=== PATIENT | female | born 1970 | race Caucasian/White ===

== ENCOUNTER → 2018-10-04 10:19 | Outpatient (CLI) | payer BC, SELFPAY ==
--- NOTE | 2018-10-04 10:26 | XR_ITS ---
XR elbow RT min 3V HISTORY: ITS.REASON: RT ELBOW PAIN ORDERING PHYSICIAN: Gabby Llamas PATIENT AGE: 48 years FINDINGS: No fracture or dislocation. There are minimal hypertrophic changes at the olecranon in the lateral epicondyles. No displaced fat pad. Joint spaces well-preserved. IMPRESSION: No acute finding. Minimal degenerative change
== END ==
PROVIDERS: PCP Nurse Practitioner; Visit Provider Nurse Practitioner
DX: M25.521 Pain in right elbow (principal)
CPT/HCPCS: 73080

== ENCOUNTER → 2019-06-25 08:39 | Outpatient (CLI) | payer BC, SELFPAY ==
--- NOTE | 2019-06-25 08:41 | MM_ITS ---
MM Dig screening mamm BI w/CAD ORDERING PHYSICIAN : Jv Shultz MD PATIENT AGE: 49 years GENDER: Female COMPARISON: October 20162014 & November 2012 bilateral mammogram HISTORY:. Takes control pills. Routine Screening Mammogram Noncontributory family history. TECHNIQUE: Standard CC and MLO images were obtained. R2 CAD reviewed. FINDINGS: . Heterogeneous Moderate breast density towards upper-outer quadrant. Fibroglandular most evident towards upper-outer quadrant. .However I see no prominent or discrete interval change since prior studies. No new suspicious or dominant mass. No suspicious calcifications RIGHT BREAST:Stable appearance no new areas of concern LEFT BREAST:No new areas of concern.. Follow-up in one year Small focal asymmetric density towards the medial breast seen on cc view stable since 2014 study. IMPRESSION: Stable mammogram. No new areas significant concern. Bilateral follow-up in one year recommended Moderately dense breasts. BI-RADS Category: 2 Benign Finding(s) RECOMMENDED FOLLOW-UP: 1YR 1 YEAR FOLLOW-UP (A letter has been sent to the patient regarding results of the study.)
== END ==
PROVIDERS: PCP Family Medicine; Visit Provider Nurse Practitioner Obstetrics & Gynecology
DX: Z12.31 Encounter for screening mammogram for malignant neoplasm of breast (principal)
CPT/HCPCS: 77067

== ENCOUNTER 2020-06-10 13:22 | Emergency (ER) | payer OTHER, SELFPAY ==
--- NOTE | 2020-06-10 14:04 | PC.NURSE ---
Called report to ED for pt to be transferred over
[2020-06-10 14:05] VITALS: BP 221/105; PULSE 78; RESP 16; TEMP 36.6; O2SAT 98; BMI 27.4
[2020-06-10 14:13] VITALS: BP 210/103; PULSE 79; RESP 18; TEMP 37.1; O2SAT 99; BMI 30.2
--- NOTE | 2020-06-10 14:13 | ECG_ITS ---
APPROVED REPORT Exam: Resting ECG HR:70 bpm ECG Measurements Heart Rate 70 AXES AR 176 P 59 QRSd 74 QRS -16 QT 438 T 35 QTc 473 <Conclusion> Normal sinus rhythm Left atrial abnormality Poor r wave progression Abnormal ECG Electronically signed by : Percy Alston, 06/12/2020 08:08:49
[2020-06-10 14:18] VITALS: BP 180/110; PULSE 75; RESP 18; O2SAT 98
--- NOTE | 2020-06-10 14:19 | XR_ITS ---
PROCEDURE: XR CHEST PORTABLE CLINICAL HISTORY: HIGH BLOOD PRESSURE Hypertension COMPARISON: No exams were available for comparison FINDINGS: The cardiomediastinal silhouette and pulmonary vascularity are within normal limits. The lungs are clear without infiltrates, suspicious nodules, or pleural effusions. No acute bony abnormalities. IMPRESSION: No acute findings. Dictated by: Kwaku Trujillo MD 06/10/2020 16:01 Electronically signed by Kwaku Trujillo MD in [place] 06/10/2020 16:01
--- NOTE | 2020-06-10 14:21 | CT_ITS ---
Procedure: CT ANGIO NECK CLINICAL HISTORY: left arm weakness, resolved Left-sided weakness, left arm weakness and numbness COMPARISON: No exams were available for comparison TECHNIQUE: IV Contrast: 100ml Optiray 350 Axial images obtained with sagittal and coronal reformats. All CT scans at the facility use one or more dose reduction, viz: automated exposure control, ma/kV adjustment per patient size (including targeted exams where dose is matched to indication, i.e. head), or iterative reconstruction technique. FINDINGS: CT angio neck: There is occlusion the left common carotid artery proximally approximately 8 mm distal to the origin. The left common carotid artery reconstitutes distally just proximal to the carotid bulb with minimal intraluminal contrast within the mid left common carotid centrally. There is moderate to high-grade stenosis of the ostium of the right common carotid artery of approximately 65 percent. There is smooth segment stenosis involving the mid aspect of the right common carotid artery of approximately 50 percent. The distal right common carotid is unremarkable. The carotid bulb on the right and the cervical portion of the right ICA has an unremarkable appearance. There is 50 percent stenosis involving the ostium of the left vertebral artery. The right vertebral has an unremarkable appearance. The left ICA is somewhat small but no significant stenosis is evident. CT angio head: There is mild atheromatous changes of the cavernous intracranial portion of the ICAs without significant stenosis.. No aneurysm, AVM, or major intracranial occlusive process is evident. 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 No enhancing lesions midline shift or mass effect is evident. IMPRESSION: 1. Occluded left common carotid with reconstitution distally just proximal to the carotid bulb and bifurcation. The left ICA is small but without significant stenosis. 2. 65 percent stenosis of the ostium of the right common carotid with 50 percent smooth segment stenosis of the mid aspect of the right common carotid. 3. 50 percent stenosis involving the ostium of the left vertebral 4. No aneurysm AVM or major intracranial occlusive process Dictated by: Kwaku Trujillo MD 06/10/2020 15:52 Electronically signed by Kwaku Trujillo MD in [place] 06/10/2020 15:52
--- NOTE | 2020-06-10 14:22 | HMH.EDGENADL ---
ED Disposition Clinical Impression: Transient ischemic attack (TIA) Carotid stenosis, symptomatic w/o infarct Qualifiers: Laterality: bilateral Qualified Code(s): I65.23 - Occlusion and stenosis of bilateral carotid arteries Hypertension Qualifiers: Hypertension type: essential hypertension Qualified Code(s): I10 - Essential (primary) hypertension Disposition: Xfer Critical Access Hosp Condition on Discharge: Fair Referrals: Gabby Llamas APRN [Primary Care Provider] - Forms: Work/School Release, Transfer Record - ED Time of Disposition: 17:14 - Critical Care Critical Care Time: Yes Attestation: On 06/10/20, the high probability of a clinically significant, sudden or life threatening deterioration of the following system(s) required my full and direct attention, intervention and personal management. The time I documented below is in addition to time spent performing reported procedures but includes the following listed in this critical care notation. Total Critical Care Time: 35 Vital system(s) involved:: Central Nervous System My critical care processes included: Assessment & monitoring of V/S, Initial and Re-exams, Data Review/Interpretation, Coordinating Care, Documentation Medical Decision Making - Medical Records Medical records reviewed: Yes: I reviewed the patient's medical records. - Chris Inquiry Pt receiving controlled substance: No Vital Signs: 06/10/20 14:05 06/10/20 14:13 06/10/20 14:18 Temperature 98 F 98.8 F Temperature Source Oral Oral Pulse Rate [Right] 78 79 75 Respiratory Rate 16 18 18 Blood Pressure [Right Arm] 221/105 H 210/103 H 180/110 H Blood Pressure Mean [Right Arm] 143 138 133 Blood Pressure Source [Right Arm] Automatic Cuff Automatic Cuff Manual Cuff/ Auscultation Blood Pressure Position [Right Arm] Sitting 02 Sat by Pulse Oximetry 98 99 98 Oxygen Delivery Method Room Air Room Air Room Air 06/10/20 15:30 Temperature Temperature Source Pulse Rate [Right] 77 Respiratory Rate 20 Blood Pressure [Right Arm] 172/84 H Blood Pressure Mean [Right Arm] 113 Blood Pressure Source [Right Arm] Automatic Cuff Blood Pressure Position [Right Arm] Sitting 02 Sat by Pulse Oximetry 98 Oxygen Delivery Method Room Air - Lab Data Lab Results 06/10/20 14:11: WBC 7.8, RBC 4.64, Hgb 15.8, Hct 44.3, MCV 95.5, MCH 34.1 H, MCHC 35.7 H, RDW 12.7, Plt Count 260, MPV 7.6, Neut % (Auto) 57.4, Lymph % (Auto) 32.0, [place] % (Auto) 5.1, Eos % (Auto) 3.7, Baso % (Auto) 1.8, Neut # (Auto) 4.5, Lymph # (Auto) 2.5, [place] # (Auto) 0.4, Eos # (Auto) 0.3, Baso # (Auto) 0.1 06/10/20 14:11: Sodium 132 L, Potassium 3.9, Chloride 90 L, Carbon Dioxide 30, Anion Gap 15.9 H, BUN 11, Creatinine 0.50 L, Estimated Creat Clear 141, Estimated GFR 130, Est GFR ( Amer) 157, Glucose 100, Calcium 9.4, Total Bilirubin 0.8, AST 73 H, ALT 74, Alkaline Phosphatase 51, Troponin I < 0.01, Total Protein 7.6, Albumin 4.7, Globulin 2.9, Albumin/Globulin Ratio 1.6 Result diagrams: 06/10/20 14:11 06/10/20 14:11 Orders (Tests/Meds): ED MEDICATIONS Discontinued Medications Generic Name Dose Route Start Last Admin Trade Name Freq PRN Reason Stop Dose Admin Aspirin 324 mg 06/10/20 14:19 06/10/20 14:21 Aspirin 81mg Chewable Tablet PO 06/10/20 14:20 324 mg ONCE ONE Administration Ioversol 100 ml 06/10/20 15:17 06/10/20 15:18 Rad-Optiray 350 100ml Vial IV 06/10/20 15:18 100 ml ONCE ONE Administration Protocol Sodium Chloride 50 ml 06/10/20 15:17 06/10/20 15:18 Rad-Ns 50ml Vial IV 06/10/20 15:18 50 ml ONCE ONE Administration Sodium Chloride 10 ml 06/10/20 15:17 06/10/20 15:18 Rad-Saline Flush 10ml Syringe IV 06/10/20 15:18 10 ml ONCE ONE Administration ORDERS Category Date Time Status Troponin I Q3H Lab 06/10/20 17:30 Ordered Troponin I Q3H Lab 06/10/20 20:30 Ordered UA [Urinalysis and Microscopic] Stat Lab 06/10/20 14:21 Ordered - Radiolog
[2020-06-10 14:31] LABS: Basophils # 0.1 K/mm3 (0-0.2); Basophils % 1.8 % (0.1-2.0); Eosinophils # 0.3 K/mm3 (0.0-0.4); Eosinophils % 3.7 % (0.1-12.0); Hematocrit 44.3 % (37.0-47.0); Hemoglobin 15.8 g/dL (12.2-16.2); Lymphocytes # 2.5 K/mm3 (0.7-4.5); Mean Corpuscular HGB Conc 35.7 g/dL (31.8-35.4); Mean Corpuscular Hemoglobin 34.1 pg (27.0-31.2); Mean Corpuscular Volume 95.5 fl (81-99); Mean Platelet Volume 7.6 fl (7.4-10.4); Monocytes # 0.4 K/mm3 (0.1-1.0); Monocytes % 5.1 % (1.7-9.3); Neutrophils # 4.5 K/mm3 (1.8-7.8); Neutrophils % 57.4 % (37.0-80.0); Platelet Count 260 K/mm3 (142-424); Red Blood Count 4.64 M/mm3 (4.20-5.40); Red Cell Distribution Width 12.7 % (11.5-17.5); White Blood Count 7.8 K/mm3 (4.8-10.8)
[2020-06-10 14:32] LABS: Chloride 90 mmol/L (98-107); Potassium 3.9 mmoL/L (3.5-5.1); Sodium 132 mmol/L (136-145)
[2020-06-10 14:34] LABS: Alanine Aminotransferase 74 U/L (12-78); Aspartate Amino Transferase 73 U/L (14-36); Blood Urea Nitrogen 11 mg/dl (7-17); Creatinine Clearance Estimated 141 mL/min (50-200); Estimated Glomerular Filt Rate 130 ml/min (>60); GFR (African American) 157 ML/MIN (>60)
[2020-06-10 14:35] LABS: Albumin Level 4.7 g/dl (3.5-5.0); Albumin/Globulin Ratio 1.6 (1.1-1.8); Alkaline Phosphatase 51 U/L (38-126); Anion Gap 15.9 mEq/L (5-15); Bilirubin,Total 0.8 mg/dl (0.2-1.3); Calcium 9.4 mg/dl (8.4-10.2); Carbon Dioxide 30 mmol/L (22.0-30.0); Globulin 2.9 g/dL (1.3-3.2); Glucose 100 mg/dl (74-100); Total Protein,Serum 7.6 g/dl (6.3-8.2)
[2020-06-10 14:47] LABS: Troponin I < 0.01 ng/ml (0.00-0.034)
--- NOTE | 2020-06-10 15:23 | PC.NURSE ---
BACK FROM CT
[2020-06-10 15:30] VITALS: BP 172/84; PULSE 77; RESP 20; O2SAT 98
--- NOTE | 2020-06-10 16:39 | PC.NURSE ---
speaking to Dr Hudson at
--- NOTE | 2020-06-10 16:48 | PC.NURSE ---
Pt accepted per Dr Buenrostro at , stated they would call back with a bed
--- NOTE | 2020-06-10 17:07 | PC.NURSE ---
[facility] CALLED WITH ROOM : PT GOING TO [facility]TH FLOOR ROOM 114
[2020-06-10 17:40] VITALS: BP 180/78; PULSE 80; RESP 18; TEMP 36.8; O2SAT 100
== END 2020-06-10 17:41 | disposition critical access hospital (66) ==
LOC: UTC 13:31 → ER 14:08
PROVIDERS: Emergency Provider Emergency Medicine; PCP Nurse Practitioner
DX: I65.23 Occlusion and stenosis of bilateral carotid arteries (principal); I10 Essential (primary) hypertension; Z87.891 Personal history of nicotine dependence; Z79.899 Other long term (current) drug therapy
CPT/HCPCS: 70496; 70498; 71045; 80053; 84484; 85025; 93005; 99284; Q9967

== ENCOUNTER → 2020-07-21 10:00 | Outpatient (CLI) | payer OTHER, SELFPAY ==
--- NOTE | 2020-07-21 10:01 | MM_ITS ---
PROCEDURE: MM DIG SCREENING MAMM BI W/CAD Digital Breast Tomosynthesis Included CLINICAL INDICATION: screening xmg There is no personal or family history of breast cancer. The patient is currently on control pills. COMPARISON: MG DMSB DIG MAMM-SCREEN TATE from 11/02/2015 MG DMSB DIG MAMM-SCREEN TATE from 11/06/2016 MG DIG MAMM-SCREEN TATE from 06/25/2019 TECHNIQUE: Standard CC and MLO images and 3D Tomosynthesis was obtained. R2 CAD reviewed. FINDINGS: Moderate scattered fibroglandular densities are seen throughout both breasts. There are couple of benign-appearing microcalcifications right breast. There are 2 small stable benign-appearing nodular densities upper outer quadrant left breast. There is no new or suspicious lesion in either breast and no suspicious microcalcifications. IMPRESSION: Moderate breast density with no suspicious lesions seen BI-RAD Category: 2 Benign Finding(s) FOLLOW-UP: 1YR 1 Year Follow-up (A letter has been sent to the patient regarding results of the study.) Dictated by: Dr. Luca Ceja MD 07/22/2020 13:08 Dr. Luca Ceja MD in [place] 07/22/2020 13:08
== END ==
PROVIDERS: PCP Nurse Practitioner; Visit Provider Nurse Practitioner Obstetrics & Gynecology
DX: Z12.31 Encounter for screening mammogram for malignant neoplasm of breast (principal)
CPT/HCPCS: 77063; 77067

== ENCOUNTER 2020-12-13 10:36 | Emergency (ER) | payer OTHER, SELFPAY ==
[2020-12-13 10:40] VITALS: BP 189/94; PULSE 83; RESP 14; TEMP 36.6; O2SAT 99; BMI 29.2
--- NOTE | 2020-12-13 10:59 | HMH.EDUTC ---
[facility] [place] Disposition Clinical Impression: Left humeral fracture Qualifiers: Encounter type: initial encounter Humerus Location: surgical neck Fracture type: closed Fracture morphology: unspecified fracture morphology Fracture alignment: nondisplaced Qualified Code(s): S42.215A - Unspecified nondisplaced fracture of surgical neck of left humerus, initial encounter for closed fracture Left elbow contusion Qualifiers: Encounter type: initial encounter Qualified Code(s): S50.02XA - Contusion of left elbow, initial encounter Left shoulder pain Qualifiers: Chronicity: acute Qualified Code(s): M25.512 - Pain in left shoulder Disposition: Home, Self-Care Condition on Discharge: Good Instructions: DI for Humeral Fracture, Humeral Shaft Fracture Additional Instructions: Rest the extremity, apply ice for 15 minutes as tolerated three or four times per day, Wear the arm sling, Elevate the extremity as tolerated while you are resting. Take ibuprofen for pain. I sent in a prescription to your pharmacy. Follow up with Dr. Sullivan (orthopedics). I call their office and you have a follow up appointment there for Dec 20, at 12:30 pm. Follow up with your regular doctor. GO TO THE ER FOR ANY WORSENING SYMPTOMS Prescriptions: Ibuprofen [Ibuprofen 800mg Tablet] 800 mg PO Q8HP PRN #30 tab PRN Reason: Moderate Pain Transmission Status: Received by [facility] Referrals: Gabby Llamas APRN [Primary Care Provider] - Jacquie Sullivan MD [Physician] - (Follow up appointment on Dec 20 at 12:30 pm) Forms: Work/School Release Time of Disposition: 12:52 Medical Decision Making - Medical Records Medical records reviewed: No: I reviewed the patient's medical records. - Chris Inquiry Pt receiving controlled substance: No Vital Signs: 12/13/20 10:40 12/13/20 12:50 Temperature 97.9 F 97.9 F Temperature Source Oral Pulse Rate 83 Pulse Rate [Right Brachial] 83 Respiratory Rate 14 14 Blood Pressure 189/94 H Blood Pressure [Right Arm] 189/94 H Blood Pressure Mean [Right Arm] 125 Blood Pressure Source [Right Arm] Automatic Cuff Blood Pressure Position [Right Arm] Sitting 02 Sat by Pulse Oximetry 99 Oxygen Delivery Method Room Air Orders (Tests/Meds): ED MEDICATIONS Discontinued Medications Generic Name Dose Route Start Last Admin Trade Name Antq PRN Reason Stop Dose Admin Ibuprofen 600 mg 12/13/20 11:43 12/13/20 11:50 Ibuprofen 600 Mg Tablet PO 12/13/20 11:44 600 mg ONCE ONE Administration - Radiology Data #1 Image(s): Humerus Image Reviewed: Yes I reviewed the patient's radiology image, Yes I have reviewed radiologist's interpretation Preliminary Findings: Abnormal PROCEDURE: XR SHOULDER LT MIN 2V CLINICAL INDICATION: INJURY Pain following injury COMPARISON: No exams were available for comparison FINDINGS: There is a nondisplaced fracture involving the neck of humerus. A nondisplaced longitudinal component also noted at the humeral head superior surface. Fracture also noted at the greater tuberosity region. Mild osteoarthritic changes are present at the glenohumeral joint. The midshaft of the humerus is unremarkable. There is a transverse lucency at the distal humerus laterally and may be related to overlap the bony structures versus nondisplaced fracture. Complete elbow series may provide further evaluation. Other findings:None. IMPRESSION: Nondisplaced fracture of the humeral neck with nondisplaced involvement of the humeral head and greater tuberosity Possible distal humerus fracture laterally versus Mach line from overlying bony structures Dictated by: Kwaku Trujillo MD 12/13/2020 12:32 Kwaku Trujillo MD in [place] 12/13/2020 12:32 #2 Image(s): Shoulder Image Reviewed: Yes I reviewed the patient's radiology image, Yes I have reviewed radiologist's interpretation Preliminary Findings: Abnormal PROCEDURE: XR SHOULDER LT MIN 2V
--- NOTE | 2020-12-13 11:06 | XR_ITS ---
PROCEDURE: XR SHOULDER LT MIN 2V CLINICAL INDICATION: INJURY Pain following injury COMPARISON: No exams were available for comparison FINDINGS: There is a nondisplaced fracture involving the neck of humerus. A nondisplaced longitudinal component also noted at the humeral head superior surface. Fracture also noted at the greater tuberosity region. Mild osteoarthritic changes are present at the glenohumeral joint. The midshaft of the humerus is unremarkable. There is a transverse lucency at the distal humerus laterally and may be related to overlap the bony structures versus nondisplaced fracture. Complete elbow series may provide further evaluation. Other findings:None. IMPRESSION: Nondisplaced fracture of the humeral neck with nondisplaced involvement of the humeral head and greater tuberosity Possible distal humerus fracture laterally versus Mach line from overlying bony structures Dictated by: Kwaku Trujillo MD 12/13/2020 12:32 Kwaku Trujillo MD in [place] 12/13/2020 12:32
--- NOTE | 2020-12-13 11:09 | XR_ITS ---
PROCEDURE: XR ELBOW LT 2V CLINICAL INDICATION: INJURY Pain following injury COMPARISON: CR ELBOWCMRT XR elbow RT min 3V from 10/04/2018 CR XR HUMERUS LT from 12/13/2020 FINDINGS: There are only two views obtained an AP and an oblique view. A true lateral is not submitted. Evaluation is therefore limited. Cannot evaluate for displaced fat pad without a true lateral . There is a faint transverse lucency involving the lateral epicondylar region. Cannot exclude the possibility of a nondisplaced fracture through this area. If there is focal pain in this area then CT may provide further evaluation IMPRESSION: Limited study. Cannot exclude fracture through the lateral epicondylar region. Dictated by: Kwaku Trujillo MD 12/13/2020 12:23 Kwaku Trujillo MD in [place] 12/13/2020 12:23
[2020-12-13 12:50] VITALS: BP 189/94; PULSE 83; RESP 14; TEMP 36.6; O2SAT 99
== END 2020-12-13 13:05 | disposition home or self-care (01) ==
PROVIDERS: Emergency Provider Nurse Practitioner Family; PCP Nurse Practitioner
DX: S42.215A Unspecified nondisplaced fracture of surgical neck of left humerus, initial encounter for closed fracture (principal); S50.02XA Contusion of left elbow, initial encounter; W01.0XXA Fall on same level from slipping, tripping and stumbling without subsequent striking against object, initial encounter; Y92.69 Other specified industrial and construction area as the place of occurrence of the external cause; Y99.0 Civilian activity done for income or pay; Z87.891 Personal history of nicotine dependence; Z88.8 Allergy status to other drugs, medicaments and biological substances
CPT/HCPCS: 73030; 73060; 73070; 99202; G0463

== ENCOUNTER → 2020-12-20 11:49 | Outpatient (CLI) | payer OTHER, SELFPAY ==
--- NOTE | 2020-12-20 11:53 | XR_ITS ---
PROCEDURE: XR SHOULDER LT MIN 2V CLINICAL INDICATION: LT shoulder injury Pain COMPARISON: CR XR SHOULDER LT MIN 2V from 12/13/2020 FINDINGS: Nondisplaced acute fracture involves the neck of the humerus. The humeral head remains located. There are osteoarthritic changes of the glenohumeral joint. Other findings:None. IMPRESSION: Nondisplaced humeral neck fracture Dictated by: Kwaku Trujillo MD 12/20/2020 14:59 Kwaku Trujillo MD in [place] 12/20/2020 14:59
== END ==
PROVIDERS: PCP Nurse Practitioner; Visit Provider Orthopaedic Surgery
DX: M25.512 Pain in left shoulder (principal)
CPT/HCPCS: 73030

== ENCOUNTER → 2021-01-03 08:39 | Outpatient (CLI) | payer OTHER, SELFPAY ==
--- NOTE | 2021-01-03 08:43 | XR_ITS ---
PROCEDURE: XR SHOULDER LT MIN 2V CLINICAL INDICATION: L proximal humerus fracture COMPARISON: CR XR HUMERUS LT from 12/13/2020 CR XR SHOULDER LT MIN 2V from 12/13/2020 CR XR SHOULDER LT MIN 2V from 12/20/2020 FINDINGS: There is redemonstration a nondisplaced fracture involving the humeral neck. There is no change in alignment. No definite callus formation. The acromioclavicular joint remains well approximated. Humeral acromial distance remains normal. There is slight inferior subluxation of the humeral head suggesting intra-articular fluid. IMPRESSION: Joint space fluid, no change in nondisplaced humeral neck fracture. Dictated by: Pari Stein 01/03/2021 16:29 Pari Stein in [place] 01/03/2021 16:29
== END ==
PROVIDERS: PCP Nurse Practitioner; Visit Provider Orthopaedic Surgery
DX: S42.202A Unspecified fracture of upper end of left humerus, initial encounter for closed fracture (principal)
CPT/HCPCS: 73030

== ENCOUNTER → 2021-01-24 08:42 | Outpatient (CLI) | payer OTHER, SELFPAY ==
--- NOTE | 2021-01-24 08:51 | XR_ITS ---
PROCEDURE: XR SHOULDER LT MIN 2V CLINICAL INDICATION: left proximal humerus fracture Follow-up fracture COMPARISON: CR XR SHOULDER LT MIN 2V from 12/13/2020 CR XR SHOULDER LT MIN 2V from 12/20/2020 CR XR SHOULDER LT MIN 2V from 01/03/2021 FINDINGS: There is a healing nondisplaced left humeral neck fracture. Developing callus formation now noted. Mild osteoarthritic changes are present at the glenohumeral joint. No evidence of dislocation. IMPRESSION: Healing nondisplaced left humeral neck fracture Dictated by: Kwaku Trujillo MD 01/24/2021 10:34 Kwaku Trujillo MD in [place] 01/24/2021 10:34
== END ==
PROVIDERS: PCP Nurse Practitioner; Visit Provider Orthopaedic Surgery
DX: M25.512 Pain in left shoulder (principal)
CPT/HCPCS: 73030

== ENCOUNTER → 2021-01-27 09:03 | Outpatient (CLI) | payer OTHER, SELFPAY ==
--- NOTE | 2021-01-27 09:03 | XR_ITS ---
PROCEDURE: XR DEXA AXIAL SKELETON CLINICAL HISTORY: LT proximal humerus fracture COMPARISON: No exams were available for comparison FINDINGS: The right hip BMD is 0.619 with a T-score of -2.1. The left hip BMD is 0.629 with a T-score of -2.0. The lumbar spine BMD is 1.028 with a T-score of -0.2. IMPRESSION: This patient is considered osteopenic according to the World Health Organization criteria. Bone density is between 10 and 25 percent below young normal. Fracture risk is moderate. Treatment is advised. Based on these results a follow-up exam is recommended in 2 year. Dictated by: Kwaku Trujillo MD 02/21/2021 20:11 Kwaku Trujillo MD in [place] 02/22/2021 09:43
== END ==
PROVIDERS: PCP Nurse Practitioner; Visit Provider Orthopaedic Surgery
DX: S42.302A Unspecified fracture of shaft of humerus, left arm, initial encounter for closed fracture; M85.89 Other specified disorders of bone density and structure, multiple sites
CPT/HCPCS: 77080

== ENCOUNTER → 2021-02-25 08:16 | Outpatient (CLI) | payer OTHER, SELFPAY ==
--- NOTE | 2021-02-25 08:21 | XR_ITS ---
PROCEDURE: XR SHOULDER LT MIN 2V CLINICAL INDICATION: LT proximal humerus fracture Follow-up fracture COMPARISON: CR XR SHOULDER LT MIN 2V from 12/13/2020 CR XR SHOULDER LT MIN 2V from 12/20/2020 CR XR SHOULDER LT MIN 2V from 01/03/2021 DX XR SHOULDER LT MIN 2V from 01/24/2021 FINDINGS: Healing nondisplaced fracture involves the left humeral neck. Mild associated osteoarthritic change noted of the glenohumeral joint. Other findings:None. IMPRESSION: No change nondisplaced fracture of the left humeral neck Dictated by: Kwaku Trujillo MD 02/25/2021 09:00 Kwaku Trujillo MD in [place] 02/25/2021 09:00
== END ==
PROVIDERS: PCP Nurse Practitioner Family; Visit Provider Orthopaedic Surgery
DX: S42.302A Unspecified fracture of shaft of humerus, left arm, initial encounter for closed fracture (principal)
CPT/HCPCS: 73030

== ENCOUNTER → 2021-02-28 11:07 | Outpatient (CLI) | payer OTHER, SELFPAY ==
[2021-02-28 12:20] LABS: Coronavirus 19 IgG Antibody Positive (Negative); Coronavirus 19 IgM Antibody Negative (Negative)
== END ==
PROVIDERS: Visit Provider Surgery
DX: Z01.812 Encounter for preprocedural laboratory examination (principal); Z20.822 Contact with and (suspected) exposure to COVID-19; Z12.11 Encounter for screening for malignant neoplasm of colon
CPT/HCPCS: 36415; 86328

== ENCOUNTER 2021-03-02 06:45 | Day surgery (SDC) | payer SELFPAY ==
[2021-02-28 13:44] VITALS: BMI 61.9
[2021-03-02 07:17] VITALS: BP 182/99; PULSE 76; RESP 18; TEMP 36.6; O2SAT 98
[2021-03-02 08:05] VITALS: O2SAT 98
--- NOTE | 2021-03-02 08:14 | P.PN_ITS ---
[facility] Anesthesia Checklist - Structural Data Admitted From: Home Planned Operative Procedure/s: colonoscopy Consent for Planned Operative Procedure(s) Verified: Yes - Airway Assessment C-Spine Mobility Assessed: Yes TMJ Mobility Assessed: Yes Dentition: Good Dentition - Neurological Assessment Level of Consciousness: Awake, Alert, Appropriate - Anesthesia Plan Anesthesia Risk discussed: Yes Anesthesia Plan: Verified ASA Class: II Anesthesia Type: MAC [facility] History I have reviewed the patient's past medical history: Yes Medical History: Reports:: Hypertension, Migraine, Transient Ischemic Attacks (TIA) Denies:: Cancer, Diabetes Mellitus Type 1, Diabetes Mellitus Type 2, Internal Pacemaker, MRSA, Seizures *Have you ever received a pneumonia vaccine?: No *Have you received a flu vaccine this season?: No Anesthesia experience/problems:: none Other Surgeries: Yes: Cholecystectomy. No: Pacemaker Amputation: No Fractures: Yes (right wrist) - *Social History Last grade of school completed: Some college Smoking Status: Never smoker Alcohol Intake: current Alcohol Intake Frequency:: holidays/special occasions only Substance Use Type: denies use *Occupational Status:: employed Housing: house Household Members: spouse *Travel in the last 8 weeks: None Family Hx:: Cancer, Hypertension
--- NOTE | 2021-03-02 08:48 | HMH.SCOPE ---
- Procedure: Date: 03/02/21 Patient Date of :: 1970 Procedure Performed:: Total colonoscopy to terminal ileum with biopsies and polypectomy by snare Indications:: 50-year-old white female referred by Jv Shultz for initial screening colonoscopy. Her primary care provider is Patti De Dios Performing Provider:: Russell Agustin MD Referring Provider:: Jv Shultz MD Sedation:: MAC sedation Please note that patient required a significant amount of propofol for adequate sedation Procedure:: Patient was taken to endoscopy procedure room. She was positioned in a lateral decubitus position. Adequate intravenous sedation was achieved. Please note that she did require a very significant large amount of propofol for sedation. Digital examination was performed which revealed normal sphincter tone. Variable stiffness Olympus colonoscope was inserted via the anus. Advanced to the cecum. Ileocecal valve and appendiceal orifice were identified. Colonoscope was advanced a short distance into the terminal ileum which appeared grossly normal. She was found to have findings consistent with mild diffuse colitis. This was possibly secondary to bowel preparation. Therefore several random right colon biopsies were obtained. In the proximal transverse colon there is a possible polyp which was removed partially with cold cutting snare and then removed in its entirety with hot snare. The distal transverse colon there was a diminutive polyp removed with cold biopsy forceps. In the sigmoid colon there was a possible polyp versus inverted diverticulum which was biopsied with cold biopsy forceps. Several biopsies were obtained in the distal left colon with there is findings consistent with some mild colitis as well. There was an adenomatous appearing rectal polyp removed with hot snare. Retroflexion within the rectum revealed internal anal papillae. Colonoscope was withdrawn. Findings:: Left-sided diverticulosis Mild right and left colitis possibly secondary to bowel prep Possible proximal transverse colon polyp removed with snare Diminutive distal transverse colon polyp removed with cold biopsy forceps Sigmoid colon possible polyp versus inverted diverticulum, biopsied Random left colon biopsies Adenomatous appearing rectal polyp Recommendations:: Likely repeat colonoscopy 2 or 3 years Complications:: None immediately apparent Estimated blood obtained (mL): 2
[2021-03-02 08:50] VITALS: BP 123/67; PULSE 77; RESP 18; O2SAT 97
[2021-03-02 09:00] VITALS: BP 149/76; PULSE 71; RESP 18; O2SAT 97
[2021-03-02 09:10] VITALS: BP 124/81; PULSE 74; RESP 20; O2SAT 98
== END 2021-03-02 09:15 | disposition home or self-care (01) ==
LOC: OUTP 06:46
PROVIDERS: PCP Nurse Practitioner Family; Visit Provider Surgery
PROC: 0DJD8ZZ Inspection of Lower Intestinal Tract, Via Natural or Artificial Opening Endoscopic (ICD-10-PCS; CPT 45380; principal; 2021-03-02 08:00)
DX: Z12.11 Encounter for screening for malignant neoplasm of colon (principal); K57.30 Diverticulosis of large intestine without perforation or abscess without bleeding; K63.5 Polyp of colon; K62.1 Rectal polyp; I10 Essential (primary) hypertension; G43.909 Migraine, unspecified, not intractable, without status migrainosus; Z86.73 Personal history of transient ischemic attack (TIA), and cerebral infarction without residual deficits; Z80.9 Family history of malignant neoplasm, unspecified; Z82.49 Family history of ischemic heart disease and other diseases of the circulatory system; Z88.6 Allergy status to analgesic agent; Z79.899 Other long term (current) drug therapy; Z79.82 Long term (current) use of aspirin
CPT/HCPCS: 45380; 45385

== ENCOUNTER → 2021-03-17 08:44 | Outpatient (CLI) | payer OTHER, SELFPAY ==
--- NOTE | 2021-03-17 08:47 | US_ITS ---
PROCEDURE: US LIVER CLINICAL INDICATION: ELEVATED LIVER ENZYMES COMPARISON: No exams were available for comparison FINDINGS: PANCREAS: Unremarkable. No obvious mass or abnormal fluid collection. No ductal dilatation LIVER: Diffuse increased echogenicity of the liver with poor through transmission of sound consistent with hepatic steatosis. No focal liver lesion demonstrated. There is appropriate direction of blood flow within non dilated portal vein. RIGHT KIDNEY: Unremarkable. Normal size and echogenicity. No hydronephrosis GALLBLADDER: Prior cholecystectomy. Common bile duct is normal in size at to mm in diameter. IMPRESSION: Prior cholecystectomy. Hepatic steatosis Dictated by: Kwaku Trujillo MD 03/17/2021 10:14 Kwaku Trujillo MD in OV 03/17/2021 10:14
== END ==
PROVIDERS: PCP Nurse Practitioner Family; Visit Provider Nurse Practitioner Family
DX: R74.8 Abnormal levels of other serum enzymes (principal)
CPT/HCPCS: 76705

== ENCOUNTER → 2021-03-28 07:59 | Outpatient (CLI) | payer OTHER, SELFPAY ==
--- NOTE | 2021-03-28 08:05 | XR_ITS ---
PROCEDURE: XR SHOULDER LT MIN 2V CLINICAL INDICATION: LT proximal humerus FX COMPARISON: CR XR SHOULDER LT MIN 2V from 12/20/2020 CR XR SHOULDER LT MIN 2V from 01/03/2021 DX XR SHOULDER LT MIN 2V from 01/24/2021 CR XR SHOULDER LT MIN 2V from 02/25/2021 FINDINGS: Healing fracture of the surgical neck of the left humerus. Degenerative changes of the left canine humeral joint is noted. Acromioclavicular joint is unremarkable. Bone density is within normal limits. No significant soft tissue abnormality. The visualized left hemithorax is unremarkable. IMPRESSION: Healing fracture of the surgical neck of the left humerus. Dictated by: Saskia Chopra 03/28/2021 10:10 Saskia Chopra in OV 03/28/2021 10:10
== END ==
PROVIDERS: PCP Nurse Practitioner Family; Visit Provider Orthopaedic Surgery
DX: S42.209A Unspecified fracture of upper end of unspecified humerus, initial encounter for closed fracture (principal)
CPT/HCPCS: 73030

== ENCOUNTER 2021-03-30 13:00 | Outpatient (RCR) | payer OTHER, SELFPAY ==
--- NOTE | 2021-01-05 11:58 | HMH.OTOPEV ---
OT Inpatient Evaluation Rehab OT Outpatient Eval Start: 01/05/21 11:39 Freq: Status: Active Protocol: Document 01/05/21 11:40 CHIP (Rec: 01/05/21 11:58 CHIP [id number]) Electronically Signed By Nicky Tyler OT 01/05/21 11:40 Outpatient Therapy Subjective History Subjective History 50 year old female referred to skilled OP OT services for left proximal humerus fx after falling on [place] on . Ortho provided order for eval and tx, start weaning out of sling and start passive ROM. Chief Complaint Pain,Weakness,Decreased Applications Support Lead Strength Symptom Type Dull Symptoms Relieved By Ice,OTC Meds Symptoms Aggravated By Physical Activity Prior Functional Limitations None Current Functional Limitations Reaching,Lifting,Dressing, Recreation Activity Symptom Description Constant and Continuous Level of pain today (0-10) 0 Pain scale - at its best (0-10) 0 Pain scale - at its worst (0-10) 6 Shoulder/Elbow Eval Shoulder Objective Measurements Shoulder ROM Left Shoulder Abduction Active Range of 60 Motion (degrees) Shoulder Flexion Active Range of Motion 50 (degrees) Query Text: Shoulder External Rotation Active Range 20 of Motion (degrees) Shoulder Internal Rotation Active Range 45 of Motion (degrees) Shoulder MMT Shoulder Abduction Strength Grade 2+ Poor+ Shoulder Extension Strength Grade 2+ Poor+ Shoulder Flexion Strength Grade 2+ Poor+ Shoulder Horizontal Abduction Strength 2+ Poor+ Grade Shoulder Horizontal Adduction Strength 2+ Poor+ Grade Infraspinatus/Teres Minor Strength Grade 2+ Poor+ Shoulder External Rotation Strength 2+ Poor+ Grade Shoulder Internal Rotation Strength 2+ Poor+ Grade Elbow Objective Measurements Wrist/Hand Eval Applications Support Lead/Pinch Strength Right Applications Support Lead Strength Measurement (lbs) 50 Left Applications Support Lead Strength Measurement (lbs) 40 OT Outpatient Assessment Impairments Problems/Impairments Impaired Range of Motion, Impaired Strength,Subjective C /O Pain Prognosis Rehab Potential Good Clinical Impression Consistent with Diagnosis Yes Short Term Goals Number of Weeks 2 Increase Range of Motion Yes: AROM of L shoulder flex: 60; ABD: 70; ER:30 and IR:55 Increase Strength
--- NOTE | 2021-02-02 11:49 | HMH.RHREAS ---
Rehab Reassessment Rehab OP Re-assessment Start: 02/02/21 11:43 Freq: Status: Active Protocol: Document 02/02/21 11:43 DIDIERTIFFANY (Rec: 02/02/21 11:49 DIDIERTIFFANY [id number]) Electronically Signed By Nicky Tyler OT 02/02/21 11:43 Rehab Re-assessment Subjective Subjective My arm is getting better. Objective Objective Notes Since the SOC, Patient has participated well in skilled OP OT services of thera act, thera exer, manual and modalities per protocol to improve L UE AROM, L UE strengthening and decrease pain levels. Assessment Progress Assessment Progressing as Expected Assessment Notes Patient has made improvement on all goals. Updated all LTGs /STGs Evaluation: AROM of L shoulder flex: 50; ABD: 60; ER:20; IR: 45 6/10 pain at worst in L UE shoulder 2-/3 out of 5 strength in L shoulder throughout <30 mins of endurance of exer prior to RB 2* pain. Re-evalution: AROM of L shoulder Flex:135; ABD:110; ER: 55; IR:60 3/10 pain at worst 30 mins of exer prior to RB 3+ to 4-/5 strengthen throughout Patient goals met All STGs met. Upgraded goals at this time. Goals Not Met N/a Revised Goals AROM of L shoulder Flex:145; ABD:125; ER: 70; IR:65 2/10 pain at worst 40 mins of exer prior to RB 4-/5 to 4/5 strengthen throughout of L shoulder Plan Plan Continue POC Frequency of Therapy 2x/wk Duration of therapy 4 weeks Time and Billing Re-Eval Time 15 Re-Eval Billing Units 1 PHYSICIAN CERTIFICATION: I certify the specified therapy services for Sabi Duvall are required, authorized, and reviewed every 30 days.
== END 2021-03-30 13:05 | disposition home or self-care (01) ==
LOC: OT 13:00
PROVIDERS: Visit Provider Orthopaedic Surgery
DX: S42.202D Unspecified fracture of upper end of left humerus, subsequent encounter for fracture with routine healing (principal)
CPT/HCPCS: 97010; 97014; 97110; 97140; 97164; 97165; 97530; G0283

== ENCOUNTER → 2021-05-27 08:46 | Outpatient (CLI) | payer OTHER, SELFPAY ==
--- NOTE | 2021-05-27 08:48 | XR_ITS ---
PROCEDURE: XR SHOULDER LT MIN 2V CLINICAL INDICATION: LT proximal humerus fracture COMPARISON: CR XR SHOULDER LT MIN 2V from 01/03/2021 DX XR SHOULDER LT MIN 2V from 01/24/2021 CR XR SHOULDER LT MIN 2V from 02/25/2021 CR XR SHOULDER LT MIN 2V from 03/28/2021 FINDINGS: There is a healed proximal humeral fracture at the humeral neck. Fracture line is not visible on today's images. There are osteoarthritic changes at the glenohumeral joint. There is good alignment. IMPRESSION: Osteoarthritic change of the glenohumeral joint with healed humeral neck fracture Dictated by: Kwaku Trujillo MD 05/27/2021 09:06 Kwaku Trujillo MD in OV 05/27/2021 09:06
== END ==
PROVIDERS: PCP Nurse Practitioner Family; Visit Provider Orthopaedic Surgery
DX: S42.202A Unspecified fracture of upper end of left humerus, initial encounter for closed fracture (principal)
CPT/HCPCS: 73030

== ENCOUNTER → 2021-12-12 09:13 | Outpatient (CLI) | payer OTHER, SELFPAY | PROVIDERS: Visit Provider Nurse Practitioner | DX: U07.1 COVID-19 (principal) | CPT/HCPCS: C9803; U0003; U0005 ==

== ENCOUNTER → 2022-02-03 16:18 | Outpatient (CLI) | payer OTHER, SELFPAY ==
[2022-02-03 17:51] LABS: Chloride 96 mmol/L (98-107); Potassium 4.1 mmoL/L (3.5-5.1); Sodium 131 mmol/L (136-145)
[2022-02-03 17:54] LABS: Alanine Aminotransferase 37 U/L (12-78); Albumin Level 4.5 g/dl (3.5-5.0); Albumin/Globulin Ratio 1.9 (1.1-1.8); Alkaline Phosphatase 78 U/L (38-126); Anion Gap 13.1 mEq/L (5-15); Aspartate Amino Transferase 32 U/L (14-36); Bilirubin,Total 1.1 mg/dl (0.2-1.3); Blood Urea Nitrogen 5 mg/dl (7-17); Calcium 8.3 mg/dl (8.4-10.2); Carbon Dioxide 26 mmol/L (22.0-30.0); Estimated Glomerular Filt Rate 129 ml/min (>60); GFR (African American) 156 ML/MIN (>60); Globulin 2.4 g/dL (1.3-3.2); Glucose 85 mg/dl (74-100); Total Protein,Serum 6.9 g/dl (6.3-8.2)
== END ==
PROVIDERS: Visit Provider Nurse Practitioner Family
DX: R74.8 Abnormal levels of other serum enzymes (principal); K76.0 Fatty (change of) liver, not elsewhere classified
CPT/HCPCS: 36415; 80053

== ENCOUNTER → 2022-03-10 08:46 | Outpatient (CLI) | payer BC, SELFPAY ==
--- NOTE | 2022-03-10 08:50 | XR_ITS ---
FINAL REPORT TECHNIQUE: Bone densitometry calculations of the lumbar spine and left hip were obtained. CLINICAL HISTORY: . osteopenia FINDINGS: Using L1-4, the bone mineral density of the spine is 0.982 g/cm2, previously 1.028 g/cm2, corresponding to T-score of -0.6, previously-0.2, which is normal but is likely falsely elevated secondary to hypertrophic change. Using the right hip, the bone mineral density of the femoral neck is 0.576 g/cm2, previously 0.619g/cm2, corresponding to a T-score of -2.5, previously-2.1. Using the left hip, the bone mineral density of the femoral neck is 0.640 g/cm2, previously 0.629 g/cm2, corresponding to a T-score of -1.9, previously-1.3. NOTE: T-score: Standard deviation compared with peak bone mass of young adult mean. *Following the recommendations of the International Society of Bone Densitometry, classification of hip BMD is based on the lower of two T-scores; total hip or femoral neck. IMPRESSION: Osteoporosis: Lowest T-score is at or below -2.5. This patient's T-score meets the World Health Organization criteria for osteoporosis. FRAX data was not reported for this patient because a T-score was at or below-2.5. Reviewed, Interpreted and Dictated by Russell Murray III, MD Transcribed by Helen Person Authenticated by Russell Murray III, MD on 03/10/2022 10:23:[address] [facility]
== END ==
PROVIDERS: PCP Nurse Practitioner Family; Visit Provider Nurse Practitioner Family
DX: M85.89 Other specified disorders of bone density and structure, multiple sites (principal)
CPT/HCPCS: 77080

== ENCOUNTER 2022-05-05 09:28 | Outpatient (CLI) | payer BC, SELFPAY ==
[2022-05-05 09:43] VITALS: BP 163/84; PULSE 84; RESP 18; O2SAT 99
[2022-05-05 10:00] VITALS: BP 165/85; PULSE 82; O2SAT 99
== END 2022-05-05 10:00 | disposition home or self-care (01) ==
LOC: INF 09:30
PROVIDERS: PCP Nurse Practitioner Family; Visit Provider Nurse Practitioner Family
DX: M81.0 Age-related osteoporosis without current pathological fracture (principal)
CPT/HCPCS: 96372; J0897

== ENCOUNTER 2022-11-06 08:31 | Outpatient (CLI) | payer BC, SELFPAY ==
[2022-11-06 08:55] VITALS: BP 135/67; PULSE 64; RESP 18; TEMP 36.2; O2SAT 98
== END 2022-11-06 09:25 | disposition home or self-care (01) ==
LOC: INF 08:35
PROVIDERS: PCP Family Medicine; Visit Provider Nurse Practitioner Family
DX: M81.0 Age-related osteoporosis without current pathological fracture (principal)
CPT/HCPCS: 96372; J0897

== ENCOUNTER 2023-05-15 09:55 | Outpatient (CLI) | payer BC, SELFPAY ==
[2023-05-15 10:08] VITALS: BP 144/71; PULSE 67; RESP 18; TEMP 36.5; O2SAT 98
== END 2023-05-15 10:42 | disposition home or self-care (01) ==
LOC: INF 09:55
PROVIDERS: PCP Nurse Practitioner Family; Visit Provider Nurse Practitioner Family
DX: M81.0 Age-related osteoporosis without current pathological fracture (principal)
CPT/HCPCS: 96372; J0897

== ENCOUNTER → 2023-09-14 16:15 | Outpatient (CLI) | payer BC, SELFPAY | PROVIDERS: PCP Nurse Practitioner Family; Visit Provider Nurse Practitioner Family | DX: R10.9 Unspecified abdominal pain (principal); B96.1 Klebsiella pneumoniae [K. pneumoniae] as the cause of diseases classified elsewhere | CPT/HCPCS: 87086 ==

== ENCOUNTER 2024-01-01 15:16 | Outpatient (CLI) | payer BC, SELFPAY ==
[2024-01-01 16:35] LABS: Alanine Aminotransferase 41 U/L (12-78); Albumin Level 5.1 g/dl (3.5-5.0); Albumin/Globulin Ratio 2.1 (1.1-1.8); Alkaline Phosphatase 68 U/L (38-126); Anion Gap 14.4 mEq/L (5-15); Aspartate Amino Transferase 40 U/L (14-36); Bilirubin,Total 0.8 mg/dl (0.2-1.3); Blood Urea Nitrogen 10 mg/dl (7-17); Calcium 10.3 mg/dl (8.4-10.2); Carbon Dioxide 25 mmol/L (22.0-30.0); Chloride 100 mmol/L (98-107); Chol/HDL Ratio 4.3 (1-3.5); Cholesterol 256 mg/dl (140-200); Estimated Glomerular Filt Rate 104 ml/min (>60); GFR (African American) 126 ML/MIN (>60); Globulin 2.4 g/dL (1.3-3.2); Glucose 85 mg/dl (74-100); HDL Cholesterol 59 mg/dl (40-60); Potassium 4.4 mmoL/L (3.5-5.1); Sodium 135 mmol/L (136-145); Total Protein,Serum 7.5 g/dl (6.3-8.2); Triglycerides 129 mg/dl (30-150); VLDL Cholesterol 26 mg/dL (0-40)
[2024-01-01 16:47] LABS: Direct LDL Cholesterol 142.83 mg/dL (100-129)
[2024-01-01 17:06] LABS: Thyroid Stimulating Hormone 0.63 uIU/mL (0.465-4.68)
== END 2024-01-01 23:59 ==
LOC: LAB.DROPOF 15:16
PROVIDERS: PCP Nurse Practitioner Family; Visit Provider Nurse Practitioner Family
DX: E78.1 Pure hyperglyceridemia (principal); I10 Essential (primary) hypertension
CPT/HCPCS: 80053; 80061; 84443

== ENCOUNTER 2024-07-08 14:25 | Outpatient (CLI) | payer BC, SELFPAY ==
[2024-07-08 14:12] LABS: Basophils # 0.1 K/mm3 (0-0.2); Basophils % 2.4 % (0.1-2.0); Eosinophils # 0.4 K/mm3 (0.0-0.4); Eosinophils % 7.1 % (0.1-12.0); Hematocrit 46.7 % (37.0-47.0); Lymphocytes # 1.9 K/mm3 (0.7-4.5); Lymphocytes % 38.8 % (10-50); Mean Corpuscular HGB Conc 32.1 g/dL (31.8-35.4); Mean Corpuscular Volume 102.8 fl (81-99); Mean Platelet Volume 9.1 fl (7.4-10.4); Monocytes # 0.5 K/mm3 (0.1-1.0); Monocytes % 10.3 % (1.7-9.3); Neutrophils % 41.4 % (37.0-80.0); Platelet Count 346 K/mm3 (142-424); Red Blood Count 4.55 M/mm3 (4.20-5.40); Red Cell Distribution Width 13.4 % (11.5-17.5); White Blood Count 4.9 K/mm3 (4.8-10.8)
[2024-07-08 14:38] LABS: Alanine Aminotransferase 45 U/L (12-78); Albumin Level 4.6 g/dl (3.5-5.0); Albumin/Globulin Ratio 1.8 (1.1-1.8); Alkaline Phosphatase 66 U/L (38-126); Anion Gap 10.7 mEq/L (5-15); Aspartate Amino Transferase 43 U/L (14-36); Bilirubin,Total 0.5 mg/dl (0.2-1.3); Blood Urea Nitrogen 11 mg/dl (7-17); Calcium 9.7 mg/dl (8.4-10.2); Carbon Dioxide 29 mmol/L (22.0-30.0); Chloride 99 mmol/L (98-107); Chol/HDL Ratio 3.7 (1-3.5); Cholesterol 212 mg/dl (140-200); Estimated Glomerular Filt Rate 128 ml/min (>60); GFR (African American) 154 ML/MIN (>60); Globulin 2.6 g/dL (1.3-3.2); Glucose 90 mg/dl (74-100); HDL Cholesterol 57 mg/dl (40-60); Potassium 4.7 mmoL/L (3.5-5.1); Sodium 134 mmol/L (136-145); Total Protein,Serum 7.2 g/dl (6.3-8.2); Triglycerides 248 mg/dl (30-150); VLDL Cholesterol 50 mg/dL (0-40)
[2024-07-08 14:49] LABS: Direct LDL Cholesterol 105.96 mg/dL (100-129)
[2024-07-08 15:08] LABS: Thyroid Stimulating Hormone 0.43 uIU/mL (0.465-4.68)
== END 2024-07-08 23:59 | disposition home or self-care (01) ==
LOC: LAB.DROPOF 14:25
PROVIDERS: PCP Nurse Practitioner Family; Visit Provider Nurse Practitioner Family
DX: I10 Essential (primary) hypertension (principal); E78.1 Pure hyperglyceridemia
CPT/HCPCS: 80053; 80061; 84443; 85025

== ENCOUNTER 2025-05-12 14:11 | Outpatient (CLI) | payer BC, SELFPAY ==
[2025-05-12 17:17] LABS: Basophils # 0.1 K/mm3 (0-0.2); Basophils % 1.5 % (0.1-2.0); Eosinophils # 0.3 Kmm3 (0.0-0.4); Eosinophils % 3.8 % (0.1-12.0); Hematocrit 43.2 % (37.0-47.0); Hemoglobin 14.2 g/dL (12.2-16.2); Immature Granulocytes # 0.03 10^3uL; Immature Granulocytes % 0.5 %; Lymphocytes # 1.9 K/mm3 (0.7-4.5); Lymphocytes % 28.2 % (10-50); Mean Corpuscular HGB Conc 32.9 g/dL (31.8-35.4); Mean Corpuscular Hemoglobin 31.5 pg (27.0-31.2); Mean Corpuscular Volume 95.8 fl (81-99); Mean Platelet Volume 11.5 fl (7.4-10.4); Monocytes # 0.7 K/mm3 (0.1-1.0); Monocytes % 11.1 % (1.7-9.3); Neutrophils # 3.6 K/mm3 (1.8-7.8); Neutrophils % 54.9 % (37.0-80.0); Nucleated Red Blood Cells # 0 10^3/uL; Nucleated Red Blood Cells % 0 %; Platelet Count 306 K/mm3 (142-424); Red Blood Count 4.51 M/mm3 (4.20-5.40); Red Cell Distribution Width 12.1 % (11.5-17.5); Red Cell Distribution Width-SD 42.7 fL; White Blood Count 6.6 K/mm3 (4.8-10.8)
[2025-05-12 17:50] LABS: Albumin Level 4.9 g/dl (3.5-5.0); Chloride 98 mmol/L (98-107); Potassium 4.6 mmoL/L (3.5-5.1); Sodium 137 mmol/L (136-145)
[2025-05-12 17:52] LABS: Alanine Aminotransferase 35 U/L (12-78); Aspartate Amino Transferase 38 U/L (14-36); Blood Urea Nitrogen 9 mg/dl (7-17); Estimated Glomerular Filt Rate 127 ml/min (>60); GFR (African American) 154 ML/MIN (>60)
[2025-05-12 17:53] LABS: Alkaline Phosphatase 56 U/L (38-126); Anion Gap 15.6 mEq/L (5-15); Bilirubin,Total 0.5 mg/dl (0.2-1.3); Calcium 9.8 mg/dl (8.4-10.2); Carbon Dioxide 28 mmol/L (22.0-30.0); Globulin 2.5 g/dL (1.3-3.2); Glucose 97 mg/dl (74-100); Magnesium 1.7 mg/dl (1.6-2.3); Total Protein,Serum 7.4 g/dl (6.3-8.2)
[2025-05-12 18:26] LABS: Thyroid Stimulating Hormone 0.45 uIU/mL (0.465-4.68)
--- OUTSIDE RECORDS SUMMARY | 2025-05-13 14:00 | XMS_ITS | Clinical Summary ---
Author Organization Healthcare Address [address] [place] [address] Care Team Providers Care Behavior Analyst Name Role Phone Unavailable Primary Care Provider Unavailabl e Medications aspirin 81 MG chewable tablet CHEW AND SWALLOW 1 TABLET DAILY. 04/07/2021 Active Family History Medical History Relation Name Comments Diabetes Other 1 Other cancer Other 2 Heart attack Other 3 Relation Name Status Comments Other 1 Other 2 Other 3 Social History Tobacco Use Types Packs/Day Years Used Date Smoking Tobacco: Former Comments Unknown Sex and Gender Information Value Date Recorded Sex Assigned at Not on file Legal Sex Female 7:52 PM EDT Gender Identity Not on file Sexual Orientation Not on file Last Filed Vital Signs Vital Sign Reading Time Taken Comments Blood Pressure 140/78 06/17/2020 11:04 AM EDT Pulse 74 06/17/2020 11:04 AM EDT Temperature - - Respiratory Rate - - Oxygen Saturation - - Inhaled Oxygen Concentration - - Weight 69.9 kg (154 lb 1.6 oz) 06/17/2020 11:04 AM EDT Height 149.9 cm (4' 11 ) 06/17/2020 11:04 AM EDT Body Mass Index 31.12 06/17/2020 11:04 AM EDT Plan of Treatment Health Maintenance Due Date Last Done Comments [facility]-Depression Screening 1970 [facility]-Infant/Child/Adol SDOH Screenings 1970 [facility]- SDOH Screenings 1986 [facility]-Adult SDOH Screenings 1986 [facility]-DTaP,Tdap,and Td Vaccine s (1 - Tdap) 1987 [facility]-Hepatitis B Vaccines (1 of 3 - 19+ 3-dose series) 1987 [facility]-Pap Smear 1989 [facility]-Cervical Cancer Screening 1998 [facility]-HPV/Cotest 1998 CT Colonography 2013 Colonoscopy 2013 FIT-DNA 2013 FIT 2013 FOBT 2013 Sigmoidoscopy 2013 [facility]-Colorectal Cancer Screening 2013 [facility]-Pneumococcal Vaccine: 50 + Years (1 of 1 - PCV) 2018 [facility]-Zoster Vaccines (1 of 2) 2018 [id number] Vaccine (1 - 20 24-25 season) 2024 [facility]-Influenza Vaccine ([place] n Ended) 2025 [facility]-Diabetes: Hemoglobin A1C Discontinued 06/10/2020 HPV Vaccines Aged Out No longer eligi ble based on patient's age to complete this topic [facility]-HIB Vaccines Aged Out No longer e ligible based on patient's age to complete this topic [facility]-Hepatitis A Vaccines Aged Out No longer eligible based on patient's age to complete this topic UKY-IPV Vaccines Aged Out No longer e ligible based on patient's age to complete this topic [facility]-Rotavirus Vaccines Aged Out No lo nger eligible based on patient's age to complete this topic Procedures Procedure Name Priority Date/Time Associated Diagnosis Comments HEMOGLOBIN A1C STAT 06/10/2020 8:25 PM EDT from Last 3 Months or Most Recently Relevant to Health Maintenance Results * Hemoglobin A1c (06/10/2020 8:25 PM EDT) Hemoglobin A1c 5.7 4.7 - 6.0 % [facility] Comment: Glycohemoglobin Reference Range, 0 years and up: 4.7 to 6.0% . HA1C Interpretive Data: Diagnosis of Diabetes: Diabetic > or = 6.5% Pre-diabetic 5.7 to 6.4% Non-diabetic < or = 5.6% . Glycemic Targets for Type I and Type II Diabetics: Non- Adults <7.0% Adults <6.0% Children and Adolescents <7.5% . Source: [place] [employer]. Standards of medical care in diabetes, 2017. Diabetes Care.2017:40 (suppl 1):S1-S135. . HbA1c assay performed by an ion-exchange chromatography method that is certified traceable to the DCCT. 06/10/2020 8:25 PM EDT 06/10/2020 8:35 PM EDT us Elen Sanchez MD LAB BLOOD ORDERABLES Final Result [facility] from Last 3 Months or Most Recently Relevant to Health Maintenance
== END 2025-05-12 23:59 | disposition home or self-care (01) ==
LOC: LAB.DROPOF 05-13 13:58
PROVIDERS: PCP Nurse Practitioner Family; Visit Provider Nurse Practitioner Family
DX: R42 Dizziness and giddiness (principal); I10 Essential (primary) hypertension; R51.9 Headache, unspecified
CPT/HCPCS: 80053; 83735; 84443; 85025

== ENCOUNTER 2025-05-26 15:23 | Outpatient (CLI) | payer BC, SELFPAY ==
[2025-05-26 14:43] LABS: Free T4 (Free Thyroxine) 1.05 ng/dl (0.78-2.19)
--- OUTSIDE RECORDS SUMMARY | 2025-05-26 15:26 | XMS_ITS | Clinical Summary ---
Author Organization Healthcare Address [address] [place] [address] Care Team Providers Care Vice President Of Communications Name Role Phone Unavailable Primary Care Provider [...] 2018 [facility]-Zoster Vaccines (1 of 2) 2018 [id number] Vaccine (1 - 20 24-25 season) 2024 [facility]-Influenza Vaccine (#1) 2025 [facility]-Diabetes: Hemoglobin A1C Discontinued 06/10/2020 HPV [...] <6.0% Children and Adolescents <7.5% . Source: [place] [employer]. Standards of medical care in [...]
[2025-05-26 16:14] LABS: T4 (Thyroxine) 7.5 ug/dl (5.53-11.0)
[2025-05-28 08:13] LABS: Triiodothyronine (T3) Free 3.2 pg/mL (2.0-4.4)
== END 2025-05-26 23:59 | disposition home or self-care (01) ==
LOC: LAB.DROPOF 15:24
PROVIDERS: PCP Nurse Practitioner Family; Visit Provider Nurse Practitioner Family
DX: R79.89 Other specified abnormal findings of blood chemistry (principal)
CPT/HCPCS: 84436; 84439; 84481

== ENCOUNTER 2025-06-16 09:22 | Outpatient (CLI) | payer BC, SELFPAY ==
--- OUTSIDE RECORDS SUMMARY | 2025-06-16 09:24 | XMS_ITS | Clinical Summary ---
Author Organization Healthcare Address [address] [place] [address] Care Team Providers Care Ambulance Attendant Name Role Phone Unavailable Primary Care Provider [...] 2018 [facility]-Zoster Vaccines (1 of 2) 2018 [id number] Vaccine (1 - 20 24-25 season) 2024 [...] <6.0% Children and Adolescents <7.5% . Source: [place] [employer]. Standards of medical care in [...]
--- NOTE | 2025-06-16 09:45 | MR_ITS ---
FINAL REPORT TECHNIQUE: Multiplanar and multisequence imaging of the brain was obtained without contrast. CLINICAL HISTORY: dizziness, headaches x 1 month dizziness with movement of head pt stated she has thumping in ears painless migraines with watery eyes FINDINGS: Brain parenchymal: There is no mass effect or midline shift. There are scattered bilateral periventricular and subcortical white matter changes. With patient's age, this could be related to chronic small vessel ischemia, sequela of migraine headaches or demyelinating disease. The cerebellum and brainstem are without acute abnormality. Ventricles: The ventricles are symmetric in size and configuration without hydrocephalus. Extra-axial spaces: No extra-axial fluid collections. Diffusion imaging: No areas of restricted diffusion to suggest acute infarct. Flow voids: Flow voids within the major intracranial vessels are preserved. Soft tissues: There is opacification of the left sphenoid sinus and mild periosteal thickening of the right greater than left maxillary sinuses. IMPRESSION: White matter signal changes which could be related to chronic small vessel ischemia, sequela of migraine headaches, or demyelinating disease. Chronic sinusitis. Reviewed, Interpreted and Dictated by Uzma Holder MD Transcribed by Helen Person Authenticated and [facility]
== END 2025-06-16 23:59 | disposition home or self-care (01) ==
LOC: RAD 09:23
PROVIDERS: PCP Nurse Practitioner Family; Visit Provider Nurse Practitioner Family
DX: J32.9 Chronic sinusitis, unspecified (principal); R90.82 White matter disease, unspecified; R42 Dizziness and giddiness; R51.9 Headache, unspecified
CPT/HCPCS: 70551

== ENCOUNTER 2025-07-07 09:30 | Outpatient (CLI) | payer BC, SELFPAY ==
[2025-07-07 13:02] LABS: Free T4 (Free Thyroxine) 1.17 ng/dl (0.78-2.19)
[2025-07-07 13:04] LABS: T4 (Thyroxine) 8.8 ug/dl (5.53-11.0)
[2025-07-07 13:18] LABS: Thyroid Stimulating Hormone 0.43 uIU/mL (0.465-4.68)
--- OUTSIDE RECORDS SUMMARY | 2025-07-08 11:09 | XMS_ITS | Clinical Summary ---
Author Organization Healthcare Address [address] [place] [address] Care Team Providers Care Pbx Operator Name Role Phone Unavailable Primary Care Provider [...] Date Last Done Comments [facility]-Depression Screening 1970 [facility]-/Child/Adol SDOH Screenings 1970 [facility]- SDOH Screenings 1986 [...] 2018 [facility]-Zoster Vaccines (1 of 2) 2018 [id number] Vaccine (1 - 20 24-25 season) 2024 [...] <6.0% Children and Adolescents <7.5% . Source: [place] [employer]. Standards of medical care in [...]
[2025-07-08 11:18] LABS: Triiodothyronine (T3) Free 3.0 pg/mL (2.0-4.4)
== END 2025-07-07 23:59 | disposition home or self-care (01) ==
LOC: LAB.DROPOF 07-08 10:52
PROVIDERS: PCP Nurse Practitioner Family; Visit Provider Nurse Practitioner Family
DX: R79.89 Other specified abnormal findings of blood chemistry (principal)
CPT/HCPCS: 84436; 84439; 84443; 84481; 86376; 86800

== ENCOUNTER 2025-09-07 10:28 | Outpatient (CLI) | payer BC, SELFPAY ==
[2025-09-07 14:54] LABS: Thyroid Stimulating Hormone 0.47 uIU/mL (0.465-4.68)
--- OUTSIDE RECORDS SUMMARY | 2025-09-09 10:36 | XMS_ITS | Clinical Summary ---
Author Organization Healthcare Address [address] [place] [address] Care Team Providers Care Tool Honing Machine Set Up Operator Name Role Phone Unavailable Primary Care [...] 2018 [facility]-Zoster Vaccines (1 of 2) 2018 [id number] Vaccine (1 - 20 24-25 season) 2025 [facility]-Influenza Vaccine (#1) 2025 [facility]-Diabetes: Hemoglobin A1C [...] <6.0% Children and Adolescents <7.5% . Source: [place] [employer]. Standards of medical care in [...]
== END 2025-09-07 23:59 ==
LOC: LAB.DROPOF 09-09 10:30
PROVIDERS: PCP Nurse Practitioner Family; Visit Provider Nurse Practitioner Family
DX: R79.89 Other specified abnormal findings of blood chemistry (principal)
CPT/HCPCS: 84443